=== PATIENT | female | born 1995 | race African-American/Black ===

== ENCOUNTER 2022-09-10 09:21 | Emergency (ER) | payer SELFPAY ==
[~2022-09-10] VITALS: Ht 157.5 cm; Wt 72.7 kg
[~2022-09-10 09:21] MED LIST: AMOXICILLIN 8751 TAB PO; FLEXERIL 1010 MG/TAB PO; MEDROL 4MG DOSPA4 MG PO
[2022-09-10 09:26] VITALS: BP 135/86; TEMP 97.7
[2022-09-10] MEDS ORDERED: BACTRIM DS 8001 TAB PO (10:04)
[2022-09-10 10:14] VITALS: PULSE 85
== END 2022-09-10 10:19 | disposition home or self-care (01) ==
LOC: COL.ER 09:21
DX: J86.9 Pyothorax without fistula (principal)

== ENCOUNTER 2023-09-09 09:33 | Emergency (ER) | payer SELFPAY ==
[~2023-09-09] VITALS: Ht 157.5 cm; Wt 79.5 kg
[~2023-09-09 09:33] MED LIST changes: +BACTRIM DS 8001 TAB PO
[2023-09-09 09:38] VITALS: BP 136/79; TEMP 99.4
[2023-09-09] MEDS ORDERED: Ibuprofen 400 MG TAB PO ONE (10:00)
[2023-09-09] MEDS ORDERED: Acetaminophen 500 MG TAB PO ONE (10:00)
[2023-09-09 10:54] VITALS: PULSE 91
== END 2023-09-09 10:54 | disposition home or self-care (01) ==
LOC: COL.ER 09:33
DX: U07.1 COVID-19 (principal); R50.9 Fever, unspecified; R05.9 Cough, unspecified; R09.81 Nasal congestion

== ENCOUNTER 2023-09-15 10:15 | Emergency (ER) | payer SELFPAY ==
[~2023-09-15] VITALS: Ht 157.5 cm; Wt 79.5 kg
[2023-09-15 10:20] VITALS: BP 134/84; TEMP 98.3
[2023-09-15 11:28] VITALS: PULSE 77
== END 2023-09-15 11:33 | disposition home or self-care (01) ==
LOC: COL.ER 10:15
DX: U07.1 COVID-19 (principal); R05.9 Cough, unspecified; R09.89 Other specified symptoms and signs involving the circulatory and respiratory systems

== ENCOUNTER 2023-12-04 12:39 | Emergency (ER) | payer SELFPAY ==
[~2023-12-04] VITALS: Ht 157.5 cm; Wt 77.3 kg
[2023-12-04 12:56] VITALS: TEMP 98.1
[2023-12-04] MEDS ORDERED: Ketorolac 30 MG/ML VIAL IM ONE (13:15)
[2023-12-04] MEDS ORDERED: MEDROL 4MG DOSPA4 MG PO (15:17)
[2023-12-04] MEDS ORDERED: FLEXERIL 1010 MG/TAB PO (15:17)
[2023-12-04 15:36] VITALS: BP 108/75; PULSE 76
== END 2023-12-04 15:33 | disposition home or self-care (01) ==
LOC: COL.ER 12:39
DX: M54.31 Sciatica, right side (principal)
CPT/HCPCS: J1885

== ENCOUNTER 2024-04-21 17:06 | Emergency (ER) | payer OTHER ==
[~2024-04-21] VITALS: Ht 157.5 cm; Wt 78.2 kg
[~2024-04-21 17:06] MED LIST changes: +ZOFRAN ODT4 MG PO
[2024-04-21 17:11] VITALS: TEMP 98.5
[2024-04-21] MEDS ORDERED: Ketorolac 60 MG/2 ML VIAL IM ONE (19:15)
[2024-04-21] MEDS ORDERED: diphenhydrAMINE 50 MG/ML 1 ML VIAL IM ONE (19:15)
[2024-04-21] MEDS ORDERED: Cyclobenzaprine 10 MG TAB PO ONE (20:15)
[2024-04-21 21:09] VITALS: BP 113/72; PULSE 84
== END 2024-04-21 21:10 | disposition home or self-care (01) ==
LOC: COL.ER 17:06
DX: R51.9 Headache, unspecified (principal)
CPT/HCPCS: J0780; J1200; J1885

== ENCOUNTER 2024-05-04 07:26 | Emergency (ER) | payer OTHER ==
[~2024-05-04] VITALS: Ht 157.5 cm; Wt 75.9 kg
[2024-05-04 07:38] VITALS: BP 128/89; TEMP 97.9
[2024-05-04] MEDS ORDERED: MOTRIN 800800 MG/TAB PO (08:17)
[2024-05-04] MEDS ORDERED: VOLTAREN GEL 1%1 TU TP (08:18)
[2024-05-04 08:25] VITALS: PULSE 71
== END 2024-05-04 08:26 | disposition home or self-care (01) ==
LOC: COL.ER 07:26
DX: S76.111A Strain of right quadriceps muscle, fascia and tendon, initial encounter (principal); X58.XXXA Exposure to other specified factors, initial encounter